=== PATIENT | male | born 1985 | race Caucasian/White ===

== ENCOUNTER 2017-03-25 02:25 | Emergency (ER) | payer OTHER ==
[~2017-03-25] VITALS: Ht 177.8 cm; Wt 81.7 kg
[2017-03-25] MEDS ORDERED: Silvadene20 GM TOP (04:50)
[2017-03-25] MEDS ORDERED: Percocet 10-321 EACH PO (04:50)
== END 2017-03-25 05:20 | disposition home or self-care (01) ==
LOC: ER 02:25
DX: T25.61 Corrosion of second degree of ankle (principal); T25.621A Corrosion of second degree of right foot, initial encounter; T32.0 Corrosions involving less than 10% of body surface; X18.XXXA Contact with other hot metals, initial encounter
CPT/HCPCS: 16020; 36415; 90471; 90714; 96374; 96375; 99284; J1170; J2270; J2405

== ENCOUNTER 2017-03-28 09:31 | Emergency (ER) | payer OTHER ==
[~2017-03-28] VITALS: Ht 182.9 cm; Wt 81.7 kg
[~2017-03-28 09:31] MED LIST: Percocet 10-321 EACH PO; Silvadene20 GM TOP
[2017-03-28] MEDS ORDERED: Crutch1 EACH MISC (11:01)
[2017-03-28] MEDS ORDERED: [UNRECOGNIZED DRUG - REMARK] TOP (11:01)
== END 2017-03-28 11:15 | disposition home or self-care (01) ==
LOC: ER 09:31
DX: T54.3X1D Toxic effect of corrosive alkalis and alkali-like substances, accidental (unintentional), subsequent encounter (principal); T25.621D Corrosion of second degree of right foot, subsequent encounter; T32.0 Corrosions involving less than 10% of body surface
CPT/HCPCS: 10060; 96374; 96375; 99283; J1170; J2405

== ENCOUNTER 2017-03-29 10:13 | Day surgery (SDC) | payer OTHER ==
[~2017-03-29 10:13] MED LIST changes: +Crutch1 EACH MISC; +[UNRECOGNIZED DRUG - REMARK] TOP
== END 2017-03-29 23:05 | disposition home or self-care (01) ==
LOC: WOUND 10:13
DX: Z48.00 Encounter for change or removal of nonsurgical wound dressing (principal); T25.221A Burn of second degree of right foot, initial encounter
CPT/HCPCS: G0463

== ENCOUNTER 2017-03-31 12:55 | Inpatient (IN) | payer OTHER ==
[~2017-03-31] VITALS: Ht 177.8 cm; Wt 84.0 kg
[2017-03-31 14:01] LABS: BASOPHILS ABSOLUTE AUTO 0.02 K/mm3 (0.00-0.23); BASOPHILS PERCENT AUTO 0 % (0-2); EOSINOPHILS ABSOLUTE AUTO 0.12 K/mm3 (0.00-0.68); EOSINOPHILS PERCENT AUTO 1 % (0-6); Hemoglobin 15.1 g/dL (13.5-17.5); IMMATURE GRAN ABSOLUTE AUTO 0.04 K/mm3 (0.00-0.10); IMMATURE GRAN PERCENT AUTO 0 % (0-1); LYMPHOCYTES ABSOLUTE AUTO 1.08 K/mm3 (0.84-5.20); LYMPHOCYTES PERCENT AUTO 11 % (21-46); MONOCYTES ABSOLUTE AUTO 0.74 K/mm3 (0.16-1.47); MONOCYTES PERCENT AUTO 8 % (4-13); Mean Corpuscular HGB 30.2 pg (26.0-34.0); Mean Corpuscular HGB Conc 35.1 g/dL (31.5-36.5); Mean Corpuscular Volume 86 fL (80-100); Mean Platelet Volume 9.2 fL (9.1-12.4); NEUTROPHILS ABSOLUTE AUTO 7.58 K/mm3 (1.96-9.15); NEUTROPHILS PERCENT AUTO 79 % (41-73); Platelet Count 197 K/mm3 (150-400); RDW Standard Deviation 34.2 fL (35.1-46.3); White Blood Cell Count 9.58 K/mm3 (4.00-11.30)
[2017-03-31 14:09] LABS: Anion Gap 6 mmol/L (6-16); Blood Urea Nitrogen 16 mg/dL (8-24); Bun/Creatinine Ratio 20.2 (12.0-20.0); CO2, Blood 28 mmol/L (21-32); Chloride, Blood 104 mmol/L (98-108); Creatinine, Blood 0.79 mg/dL (0.60-1.20); Glomerular Filtration Rate >60 (60-); Glucose, Blood 88 mg/dL (70-99); Potassium, Blood 3.9 mmol/L (3.5-5.5); Sodium, Blood 138 mmol/L (136-145)
[2017-04-01 05:02] LABS: BASOPHILS ABSOLUTE AUTO 0.02 K/mm3 (0.00-0.23); BASOPHILS PERCENT AUTO 0 % (0-2); EOSINOPHILS ABSOLUTE AUTO 0.14 K/mm3 (0.00-0.68); EOSINOPHILS PERCENT AUTO 2 % (0-6); Hemoglobin 13.5 g/dL (13.5-17.5); IMMATURE GRAN ABSOLUTE AUTO 0.04 K/mm3 (0.00-0.10); IMMATURE GRAN PERCENT AUTO 1 % (0-1); LYMPHOCYTES ABSOLUTE AUTO 1.33 K/mm3 (0.84-5.20); LYMPHOCYTES PERCENT AUTO 17 % (21-46); MONOCYTES ABSOLUTE AUTO 0.71 K/mm3 (0.16-1.47); MONOCYTES PERCENT AUTO 9 % (4-13); Mean Corpuscular HGB 30.1 pg (26.0-34.0); Mean Corpuscular HGB Conc 34.6 g/dL (31.5-36.5); Mean Corpuscular Volume 87 fL (80-100); Mean Platelet Volume 9.4 fL (9.1-12.4); NEUTROPHILS ABSOLUTE AUTO 5.59 K/mm3 (1.96-9.15); NEUTROPHILS PERCENT AUTO 71 % (41-73); Platelet Count 192 K/mm3 (150-400); RDW Coefficient Variation 11.2 % (11.7-14.2); RDW Standard Deviation 35.7 fL (35.1-46.3); Red Blood Cell Count 4.48 M/mm3 (4.30-5.90); White Blood Cell Count 7.83 K/mm3 (4.00-11.30)
[2017-04-01 06:03] LABS: Anion Gap 5 mmol/L (6-16); Blood Urea Nitrogen 14 mg/dL (8-24); Bun/Creatinine Ratio 18.4 (12.0-20.0); CO2, Blood 28 mmol/L (21-32); Chloride, Blood 106 mmol/L (98-108); Creatinine, Blood 0.76 mg/dL (0.60-1.20); Glomerular Filtration Rate >60 (60-); Glucose, Blood 100 mg/dL (70-99); Potassium, Blood 3.8 mmol/L (3.5-5.5); Sodium, Blood 139 mmol/L (136-145)
[2017-04-01 06:05] LABS: Calcium, Blood 7.9 mg/dL (8.5-10.1)
[2017-04-01 16:02] LABS: Vancomycin, Trough 12.9 ug/mL (5.0-10.0)
[2017-04-02] MEDS ORDERED: CEPH500 PO (09:34)
[2017-04-02] MEDS ORDERED: ASPI81CH PO (09:35)
[2017-04-02] MEDS ORDERED: DOCU100 PO (09:35)
[2017-04-02] MEDS ORDERED: ONDA4 PO (09:36)
[2017-04-02] MEDS ORDERED: SILVER SULFADIAZINE TOP (09:39)
== END 2017-04-02 11:09 | disposition home or self-care (01) | DRG 918 ==
LOC: ER 12:55 → MEDS 16:49
PROVIDERS: Internal Medicine; Physician Assistant
DX: T59.4X1A Toxic effect of chlorine gas, accidental (unintentional), initial encounter (principal); L03.115 Cellulitis of right lower limb; T25.49 Corrosion of unspecified degree of multiple sites of ankle and foot; R11.0 Nausea; Y92.69 Other specified industrial and construction area as the place of occurrence of the external cause; Y99.0 Civilian activity done for income or pay
CPT/HCPCS: 36415; 80048; 80202; 83605; 85025; 87040; 96361; 96374; 96375; 99285; J0690; J1170; J1650; J2405; J3370; J7030; J7050

== ENCOUNTER 2017-04-11 14:55 | Day surgery (SDC) | payer OTHER ==
[~2017-04-11 14:55] MED LIST changes: +ASPI81CH PO; +CEPH500 PO; +DOCU100 PO; +ONDA4 PO; +SILVER SULFADIAZINE TOP
== END 2017-04-11 15:45 | disposition home or self-care (01) ==
LOC: WOUND 14:55
PROC: 0HBMXZZ Excision of Right Foot Skin, External Approach (ICD-10-PCS; principal; 2017-04-11)
DX: Z48.00 Encounter for change or removal of nonsurgical wound dressing (principal); T50.901D Poisoning by unspecified drugs, medicaments and biological substances, accidental (unintentional), subsequent encounter; T25.621D Corrosion of second degree of right foot, subsequent encounter; T32.0 Corrosions involving less than 10% of body surface
CPT/HCPCS: G0463

== ENCOUNTER 2017-04-18 00:10 | Day surgery (SDC) | payer OTHER | END 2017-04-18 23:00 | disposition home or self-care (01) | LOC: WOUND 00:10 | DX: Z48.00 Encounter for change or removal of nonsurgical wound dressing (principal); T25.221A Burn of second degree of right foot, initial encounter | CPT/HCPCS: G0463 ==

== ENCOUNTER 2017-04-25 | Day surgery (SDC) | END 2017-04-25 23:00 | disposition home or self-care (01) ==

== ENCOUNTER 2017-05-02 14:58 | Day surgery (SDC) | payer OTHER | END 2017-05-02 22:53 | disposition home or self-care (01) | LOC: WOUND 14:58 | DX: Z48.00 Encounter for change or removal of nonsurgical wound dressing (principal); T25.221A Burn of second degree of right foot, initial encounter | CPT/HCPCS: G0463 ==

== ENCOUNTER 2017-05-09 14:44 | Day surgery (SDC) | payer OTHER | END 2017-05-09 23:16 | disposition home or self-care (01) | LOC: WOUND 14:44 | DX: T25.221A Burn of second degree of right foot, initial encounter (principal); T25.211A Burn of second degree of right ankle, initial encounter | CPT/HCPCS: G0463 ==

== ENCOUNTER 2017-05-16 12:15 | Day surgery (SDC) | payer OTHER | END 2017-05-16 16:50 | disposition home or self-care (01) | LOC: WOUND 12:15 | DX: Z48.00 Encounter for change or removal of nonsurgical wound dressing (principal); T25.221A Burn of second degree of right foot, initial encounter | CPT/HCPCS: G0463 ==

== ENCOUNTER 2017-05-23 12:22 | Day surgery (SDC) | payer OTHER | END 2017-05-23 23:08 | disposition home or self-care (01) | LOC: WOUND 12:22 | DX: Z48.00 Encounter for change or removal of nonsurgical wound dressing (principal); T25.621D Corrosion of second degree of right foot, subsequent encounter | CPT/HCPCS: G0463 ==

== ENCOUNTER 2017-05-31 10:59 | Day surgery (SDC) | payer OTHER | END 2017-05-31 22:49 | disposition home or self-care (01) | LOC: WOUND 10:59 | DX: Z48.00 Encounter for change or removal of nonsurgical wound dressing (principal); T25.221A Burn of second degree of right foot, initial encounter | CPT/HCPCS: G0463 ==

== ENCOUNTER 2018-12-21 19:06 | Emergency (ER) | payer OTHER ==
[~2018-12-21] VITALS: Ht 177.8 cm; Wt 83.9 kg
[2018-12-21 19:56] LABS: Source, Urine Clean Catch
[2018-12-21 20:08] LABS: Bilirubin, Urine Neg (Neg); Blood, Urine Neg (Neg); Glucose Qualitative, Urine Neg (Neg); Ketones, Urine Neg (Neg); Leukocyte Esterase, Urine Neg (Neg); Nitrite, Urine Neg (Neg); Protein, Urine Neg (Neg); Specific Gravity, Urine 1.005 (1.003-1.022); Urobilinogen, Urine NORM (Normal); pH, Urine 6.5 (5.0-8.0)
[2018-12-21 20:21] LABS: Appearance, Urine Clear (Clear); Color, Urine Pale Yellow (P-Yellow)
[2018-12-21] MEDS ORDERED: GABA100 PO (21:52)
[2018-12-21] MEDS ORDERED: Vibramycin100 MG PO (22:57)
[2018-12-21] MEDS ORDERED: IBUP600 PO (22:57)
== END 2018-12-22 00:31 | disposition home or self-care (01) ==
LOC: ER 19:06
PROVIDERS: Physician Assistant
DX: N45.1 Epididymitis (principal); R55 Syncope and collapse; Z79.899 Other long term (current) drug therapy
CPT/HCPCS: 76870; 81003; 82947; 96372; 99284-25; J0696; J1885